=== PATIENT | female | born 1985 | race Caucasian/White ===

== ENCOUNTER → 2019-06-01 | Outpatient (CLI) | payer BC ==
--- NOTE | 2019-06-01 11:50 | MM ---
Reason for exam: clinical finding. Last mammogram was performed 8 years and 9 months ago. History: Family history of breast cancer in mother at age 50. Benign excisional biopsy of the left breast, December 14, 2008. Took hormonal contraceptives beginning at age 25. Physical Findings: Nurse did not find any significant physical abnormalities on exam. MG 3D Diag Mammo W/Cad ANNEL Bilateral CC and MLO view(s) were taken. The breast tissue is extremely dense which could obscure a lesion on mammography. Possibly obscured nodular focal asymmetry left upper inner quadrant posteriorly. These results were verbally communicated with the patient and result sheet given to the patient on 06/01/19. ASSESSMENT: Incomplete: need additional imaging evaluation, BI-RAD 0 RECOMMENDATION: Ultrasound of the left breast. (superior half)
--- NOTE | 2019-06-01 11:52 | USB ---
Reason for exam: additional evaluation requested from abnormal screening. History: Family history of breast cancer in mother at age 50. Benign excisional biopsy of the left breast, December 14, 2008. Took hormonal contraceptives beginning at age 25. US Breast Limited LT Left limited breast ultrasound including focal area of concern, retroareolar and axilla demonstrates no cystic or solid lesion seen. Scanned 9-3 o'clock. 6 month follow up mammogram as a precautionary measure. These results were verbally communicated with the patient and result sheet given to the patient on 06/01/19. ASSESSMENT: Probably benign, BI-RAD 3 RECOMMENDATION: Follow-up diagnostic mammogram of the left breast in 6 months. Manage on a clinical basis with regard to benign nipple discharge.
== END | disposition home or self-care (01) ==
LOC: RADMAMWWP 10:23
PROVIDERS: ATTEND Obstetrics & Gynecology
DX: N64.4 Mastodynia (principal); N64.52 Nipple discharge
CPT/HCPCS: 77062; 77066

== ENCOUNTER 2020-06-08 11:08 | Inpatient (IN) | payer BC ==
[2020-06-08] MEDS ORDERED: TERBUTALINE 1 MG/ML VIAL SQ PRN (13:01)
[2020-06-08] MEDS ORDERED: CARBOPROST TROMETHAMINE 250 MCG/ML 1 ML AMP IM PRN (13:01)
[2020-06-08] MEDS ORDERED: OXYTOCIN 10 UNIT/ML 1 ML VIAL IM PRN (13:01)
[2020-06-08] MEDS ORDERED: METHYLERGONOVINE 0.2 MG/ML 1 ML AMP IM PRN (13:01)
[2020-06-08] MEDS ORDERED: LIDOCAINE 0.5% (PF) 5 MG/ML (50 ML SDV) SQ PRN (13:01)
[2020-06-08] MEDS ORDERED: BUTORPHANOL 1 MG/ML 1 ML VIAL IV PRN (13:02)
[2020-06-08] MEDS ORDERED: OXYTOCIN 30 UNITS/500 ML NS 30 UNIT in SALINE 1 500ML.BAG IV SCH (13:15)
[2020-06-08] MEDS ORDERED: LACTATED RINGERS 1,000 ML IV SCH (13:15)
[2020-06-08 13:24] LABS: Basophils % (A) 0 %; Eosinophils # (A) 0.1 k/uL (0-0.7); Eosinophils % (A) 1 %; HCT 39.8 % (34.0-46.0); HGB 12.8 gm/dL (11.4-16.0); Lymphocytes # (A) 1.3 k/uL (1.0-4.8); Lymphocytes % (A) 13 %; MCH 31.3 pg (25.0-35.0); MCHC 32.1 g/dL (31.0-37.0); MCV 97.5 fL (80.0-100.0); Mean Platelet Volume 7.8; Monocytes # (A) 0.6 k/uL (0-1.0); Monocytes % (A) 6 %; Neutrophils % (A) 78 %; Platelet Count 189 k/uL (150-450); RBC 4.09 m/uL (3.80-5.40); RDW 13.8 % (11.5-15.5); WBC 10.2 k/uL (3.8-10.6)
--- NOTE | 2020-06-08 15:00 | P.HPOB ---
History of Present Illness H&P Date: 06/08/20 Chief Complaint: My water broke at 12:30 This is a 35-year-old white female 3 para 2002 EDC 06/14/2020 39-2/7 weeks' gestation. Patient presents with a history of her water breaking at home at 12:30, clear fluid. Mild irregular uterine contractions to follow. Fetus is been active throughout the . Past medical history is negative. Past surgical history lumpectomy of the left breast, benign. Wrist surgery 2003. Colora teeth extracted 2003. Current medications vitamins daily. ALLERGIES none known. Family history significant for breast cancer and thyroid cancer. Obstetric history normal spontaneous vaginal deliveries 2, both male infants, unremarkable at 39 weeks. 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 She is , Andrew is present. She is a nonsmoker. She denies alcohol or drug use. history is significant for blood type A-, rubella status immune. Urine culture, gonorrhea and chlamydia cultures, hepatitis B surface antigen, HIV testing, materni-T testing, strep cultures all negative. On exam patient is 5 foot 9 inches, 165 pounds, blood pressure 106/56. The gene ral physical exam is within normal limits. Chest is clear in all davis. Cervix is 4 cm dilated, 70% effaced, -2 station, vertex presentation. Artificial amniorrhexis reveals a large amount of clear fluid, although amnisure testing was positive at the bedside. heart rate is consistent with reactive NST. Impression: 39-2/7 weeks intrauterine , early labor, all signs reassuring. Plan: Continue close maternal and surveillance. Continue oxytocin augmentation as needed. Analgesic options have been reviewed. Anticipate normal spontaneous vaginal delivery. Review of Systems Constitutional: Reports as per HPI Past Medical History Past Medical History: No Reported History History of Any Multi-Drug Resistant Organisms: None Reported Additional Past Surgical History / Comment(s): Left Wrist Plate. Left Breast Lumpectomy. [place] Tooth Extraction Past Anesthesia/Blood Transfusion Reactions: No Reported Reaction Past Psychological History: No Psychological Hx Reported Smoking Status: Never smoker Past Alcohol Use History: None Reported Past Drug Use History: None Reported - Past Family History Mother Additional Family Medical History / Comment(s): Thryoid and breast cancer. Medications and Allergies Home Medications Medication Instructions Recorded Confirmed Type Pnv,Calcium 72/Iron/Folic Acid 1 tab PO DAILY 04/05/16 04/05/16 History [Preplus Ca-Fe 27 mg-FA 1 mg Tb] Allergies Allergy/AdvReac Type Severity Reaction Status Date / Time No Known Allergies Allergy Verified 06/08/20 12:15 Exam Vital Signs Temp Pulse Resp BP Pulse Ox 06/08/20 12:14 98.1 F 82 18 106/56 97 Intake and Output 06/07/20 06/08/20 06/08/20 22:59 06:59 14:59 Other: Weight 74.843 kg See dictation under HPI please Results Result Diagrams: 06/08/20 12:40 Abnormal Lab Results - Last 24 Hours (Table) 06/08/20 Range/Units 12:40 Neutrophils # 8.0 H (1.3-7.7) k/uL Assessment and Plan Assessment: 39-2/7 weeks intrauterine , early labor. All signs reassuring. Plan: Oxytocin augmentation as needed. Continue close maternal and surveillance. Analgesic options have been reviewed. Anticipate normal spontaneous vaginal delivery. Time with Patient: Less than 30
[2020-06-08] MEDS ORDERED: ROPIVACAINE 5MG/ML 20ML VIAL ONE (16:55)
[2020-06-08] MEDS ORDERED: fentaNYL (PF) 50 MCG/ML 5 ML AMP ONE (16:55)
[2020-06-08] MEDS ORDERED: SODIUM CHLORIDE 0.9% 100 ML BAG ONE (16:55)
[2020-06-08] MEDS ORDERED: ROPIVACAINE 100 MG, fentaNYL (PF) 200 MCG in SODIUM CHLORIDE 0.9% 76 ML EPIDURAL ONE (18:20)
[2020-06-08] MEDS ORDERED: ACETAMINOPHEN TAB 325 MG TAB PO PRN (19:17)
[2020-06-08] MEDS ORDERED: diphenhydrAMINE 25 MG CAP PO PRN (19:17)
[2020-06-08] MEDS ORDERED: LANOLIN CREAM 5 GM TUBE TOPICAL PRN (19:17)
[2020-06-08] MEDS ORDERED: BENZOCAINE/MENTHOL SPRAY 1 GM/SPRAY AEROSOL TOPICAL PRN (19:17)
[2020-06-08] MEDS ORDERED: ZOLPIDEM 5 MG TAB PO PRN (19:17)
[2020-06-08] MEDS ORDERED: HYDROCORTISONE 2.5% RECTAL CREAM 30 GM TUBE RECTAL PRN (19:17)
[2020-06-08] MEDS ORDERED: diphenhydrAMINE 50 MG/ML 1 ML VIAL IVP PRN ×2 (19:17)
[2020-06-08] MEDS ORDERED: diphenhydrAMINE ELIXIR 25 MG/10 ML CUP PO PRN (19:17)
[2020-06-08] MEDS ORDERED: IBUPROFEN 600 MG TAB PO PRN (19:17)
[2020-06-08] MEDS ORDERED: SIMETHICONE 80 MG CHEWABLE PO PRN (19:17)
[2020-06-08] MEDS ORDERED: diphenhydrAMINE 50 MG CAP PO PRN (19:17)
--- NOTE | 2020-06-08 19:17 | P.PROBDLV ---
Vaginal Delivery Note - . Vaginal Delivery Note: This is a 35-year-old white female 3 para 2001 EDC 06/14/2020 at 39-2/7 weeks' gestation. Patient presented today with spontaneous amniorrhexis which occurred at home, clear fluid. Group B strep cultures negative, blood type A-, rubella status immune. Please see dictated history and physical for details. Oxytocin was started and titrated per hospital protocol. Patient requested and received an epidural. She became completely dilated at 1900 hrs. and began the second stage of labor at that time. Perineal body was prepped and draped in usual sterile fashion. With excellent maternal expulsive efforts the 's head delivered occiput anterior and she restituted accordingly. There was no nuchal cord noted. The right or anterior shoulder was delivered easily from underneath the pubic symphysis at which time the oropharynx, nasopharynx, and external nares are bulb suctioned on the perineal body. Patient is officially delivered of a liveborn female infant at 1902 hrs. Umbilical cord is doubly clamped and ligated, she is handed to waiting nurses for evaluation where scores of 9 and 9 at one and 5 minutes respectively are given. The placenta delivered spontaneously with active management, it was inspected and noted to be intact with trivascular cord at 1905 hrs. Cord blood is sent to the lab for Rh typing. Uterus is massaged and is firm, midline, symmetric, 18 week size. Careful inspection of the cervix, vagina, perineum, periurethral, and perirectal areas reveals a small first-degree midline laceration at 6:00. This is repaired in the usual fashion with 3-0 Rapide and a single suture. All sponge needle and enhancement counts are correct at the end of the procedure. Estimated blood loss 150 mL's. Patient and her family are allowed to begin the bonding experience in the LDR.
[2020-06-08] MEDS ORDERED: OXYTOCIN 20 UNITS/1000 ML NS 1,000 ML IV SCH (19:30)
[2020-06-08 20:11] VITALS: RESP 16
[2020-06-08] MEDS ORDERED: Rhogam IMMUNE GLOBULIN 1,500 UNIT/1 ML IM ONE (22:24)
[2020-06-09] MEDS: SENNOSIDES-DOCUSATE SODIUM 1 EACH TAB PO SCH ×2 (00:52→08:56)
--- NOTE | 2020-06-09 07:50 | P.DS ---
Providers Date of admission: 06/08/20 11:46 Expected date of discharge: 06/09/20 Attending physician: Cristine Wellington Primary care physician: Stated None Hospital Course: This is a 35-year-old white female 3 para 2002 EDC 12/15/2019 at 39-2/7 weeks' gestation. Patient presented in spontaneous active labor, with amniorrhexis at home, clear fluid. Group B strep cultures negative, blood type A negative, rubella status immune. Patient went on to deliver quickly a liveborn female infant with scores of 9 and 9 at one and 5 minutes respectively. Infant weighed 7 lbs. 8 oz. or 3410 g. The was an estimated blood loss recorded of 450 mL and a small first-degree perineal laceration easily repaired with a single [id number] suture. Please see dictated history and physical as well as delivery note for details. This morning the patient is feeling well. She is voiding, ambulating and passing flatus without difficulty. Vital signs are stable and she is afebrile. Fundus is firm and in the midline, symmetric and 18 week size. Extremities are negative for edema. Breasts are not engorged. Breast-feeding is doing well. infant is also doing well. Patient is judged to be in very good condition for discharge home. She will follow-up with me in the office in 6 weeks. I have reminded her no intercourse, tampons or douching. She will use [id number] ibuprofen as needed for pain, continue taking her vitamin daily. She will call with any fevers shakes or chills, foul smelling or copious lochia, with the passage of large blood clots, with any pain not alleviated by [id number] products or indeed with any concerns. We have briefly discussed contraceptive options and we will review this further in the office. Assessment: Doing well day #1 Patient Condition at Discharge: Good Plan - Discharge Summary New Discharge Prescriptions: No Action Pnv,Calcium 72/Iron/Folic Acid [Preplus Ca-Fe 27 mg-FA 1 mg Tb] 1 tab PO DAILY Discharge Medication List Pnv,Calcium 72/Iron/Folic Acid [Preplus Ca-Fe 27 mg-FA 1 mg Tb] 1 tab PO DAILY 04/05/16 [History] Follow up Appointment(s)/Referral(s): Cristine Wellington MD [STAFF PHYSICIAN] - 6 Weeks Discharge Disposition: HOME SELF-CARE
[2020-06-09 17:07] VITALS: BP 98/56; PULSE 72; TEMP 98.4
== END 2020-06-09 19:34 | disposition home or self-care (01) | DRG 807 ==
LOC: FBPOP 11:08 → 4FBP 11:46
PROVIDERS: ADMIT Obstetrics & Gynecology; ATTEND Obstetrics & Gynecology
PROC: 0HQ9XZZ Repair Perineum Skin, External Approach (ICD-10-PCS; principal; 2020-06-08)
PROC: 10E0XZZ Delivery of Products of Conception, External Approach (ICD-10-PCS; principal; 2020-06-08)
DX: O70.0 First degree perineal laceration during delivery (principal); Z37.0 Single live birth; Z3A.39 39 weeks gestation of pregnancy; Z80.3 Family history of malignant neoplasm of breast; Z80.8 Family history of malignant neoplasm of other organs or systems
CPT/HCPCS: 85025; 85461; 86850; 86870; 86880; 86900; 86901